=== PATIENT | female | born 1970 | race Caucasian/White ===

== ENCOUNTER 2016-10-08 19:34 | Emergency (ER) | payer MEDICAID ==
[~2016-10-08] VITALS: Ht 167.6 cm; Wt 123.2 kg
[2016-10-08] MEDS ORDERED: LISI40TA PO (20:21)
[2016-10-08 21:00] VITALS: BP 153/98
== END 2016-10-08 21:02 | disposition home or self-care (01) ==
LOC: ED 20:56
DX: H66.001 Acute suppurative otitis media without spontaneous rupture of ear drum, right ear (principal); E66.01 Morbid (severe) obesity due to excess calories; I10 Essential (primary) hypertension; E11.9 Type 2 diabetes mellitus without complications
CPT/HCPCS: 99283

== ENCOUNTER 2016-10-18 22:13 | Emergency (ER) | payer MEDICAID ==
[~2016-10-18] VITALS: Ht 167.6 cm; Wt 123.9 kg
[~2016-10-18 22:13] MED LIST: LISI40TA PO
[2016-10-18 22:14] VITALS: BP 169/122
== END 2016-10-19 00:11 | disposition home or self-care (01) ==
LOC: ED 23:47
DX: J02.9 Acute pharyngitis, unspecified (principal); K21.9 Gastro-esophageal reflux disease without esophagitis; I10 Essential (primary) hypertension; E78.00 Pure hypercholesterolemia, unspecified; E11.9 Type 2 diabetes mellitus without complications
CPT/HCPCS: 99281

== ENCOUNTER 2016-11-06 03:07 | Emergency (ER) | payer MEDICAID ==
[~2016-11-06] VITALS: Ht 167.6 cm; Wt 122.9 kg
[2016-11-06] MEDS ORDERED: SODIUM CHLORIDE FLUSH 10ML SYR IVF ONE (03:30)
[2016-11-06] MEDS ORDERED: SODIUM CHLORIDE 0.9% 1,000ML IVBOLUS ONE (03:30)
[2016-11-06 04:38] LABS: BLOOD UREA NITROGEN 14 mg/dL (7-18)
[2016-11-06] MEDS ORDERED: INSULIN REGULAR 100 UNITS/ML, 3ML VIAL SQ-INSULIN STA (04:53)
[2016-11-06] MEDS ORDERED: INSULIN REGULAR 100 UNITS/ML, 3ML VIAL ONE (05:04)
[2016-11-06 05:20] VITALS: BP 156/100
== END 2016-11-06 05:22 | disposition home or self-care (01) ==
LOC: ED 05:12
DX: E11.65 Type 2 diabetes mellitus with hyperglycemia (principal); I10 Essential (primary) hypertension; E78.00 Pure hypercholesterolemia, unspecified; Z88.1 Allergy status to other antibiotic agents
CPT/HCPCS: 36415; 80048; 82040; 82962; 84703; 85025; 96372

== ENCOUNTER 2016-11-12 22:08 | Emergency (ER) | payer MEDICAID ==
[~2016-11-12] VITALS: Ht 167.6 cm; Wt 122.9 kg
[2016-11-13 01:59] VITALS: BP 136/72
== END 2016-11-13 02:03 | disposition home or self-care (01) ==
LOC: ED 11-13 00:45
DX: F33.9 Major depressive disorder, recurrent, unspecified (principal); Z72.89 Other problems related to lifestyle; E11.9 Type 2 diabetes mellitus without complications; K21.9 Gastro-esophageal reflux disease without esophagitis; I10 Essential (primary) hypertension; E78.00 Pure hypercholesterolemia, unspecified
CPT/HCPCS: 99281

== ENCOUNTER 2017-01-17 18:22 | Inpatient (IN) | payer MEDICAID ==
[~2017-01-17] VITALS: Ht 167.6 cm; Wt 123.1 kg
[2017-01-17] MEDS ORDERED: SODIUM CHLORIDE 0.9% 1,000ML IVBOLUS ONE ×2 (19:30→21:30)
[2017-01-17] MEDS ORDERED: INSULIN REGULAR 100 UNITS/ML, 3ML VIAL SQ-INSULIN ONE (19:30)
[2017-01-17 19:41] LABS: HEMOGLOBIN 14.6 g/dL (11.7-16.4); WHITE BLOOD COUNT 10.9 x10^3/uL (3.4-10)
[2017-01-17] MEDS ORDERED: INSULIN SINGLE DOSE, ER SQ-INSULIN ONE (19:43)
[2017-01-17 19:51] LABS: BLOOD UREA NITROGEN 18 mg/dL (7-18)
[2017-01-17 19:52] LABS: ASPARTATE AMINO TRANSFERASE 20 U/L (15-37)
[2017-01-17] MEDS ORDERED: METF500T4 PO (20:28)
[2017-01-17] MEDS ORDERED: ATOR10TA9 PO (20:29)
[2017-01-17] MEDS ORDERED: INSU100C5 SQ-INSULIN (20:29)
[2017-01-17] MEDS ORDERED: POLYETHYLENE GLYCOL 17 GM PACKET PO PRN (21:30)
[2017-01-17] MEDS ORDERED: ONDANSETRON 2MG/ML, 2ML IVPush PRN (21:30)
[2017-01-17] MEDS ORDERED: BISACODYL 10 MG SUPP PR PRN (21:30)
[2017-01-17 22:39] VITALS: BP_SYST 145; BP_SYST 97; BP_DIAS 109; BP_DIAS 66
[2017-01-17] MEDS: SODIUM CHLORIDE 0.9% 1,000 ML IV SCH ×2 (22:53→23:48)
[2017-01-17] MEDS: NYSTATIN TOPICAL POWDER 15GM TP SCH (23:46)
[2017-01-17] MEDS: ATORVASTATIN 10 MG TABLET PO SCH (23:46)
[2017-01-17] MEDS: HEPARIN 5,000 UNITS/ML, 1ML SQ SCH (23:46)
[2017-01-17] MEDS: metFORMIN 500 MG TABLET PO SCH (23:46)
[2017-01-17] MEDS: INSULIN ASPART 100 UNITS/ML, PEN SQ-INSULIN SCH (23:47)
[2017-01-18 03:32] VITALS: BP 126/77
[2017-01-18 04:55] LABS: HEMATOCRIT 38.5 % (34.6-47.8); HEMOGLOBIN 13.5 g/dL (11.7-16.4); WHITE BLOOD COUNT 10.5 x10^3/uL (3.4-10)
[2017-01-18 05:06] LABS: ASPARTATE AMINO TRANSFERASE 13 U/L (15-37); BLOOD UREA NITROGEN 14 mg/dL (7-18)
[2017-01-18] MEDS: INSULIN ASPART 100 UNITS/ML, PEN SQ-INSULIN SCH ×4 (05:37→22:23)
[2017-01-18 08:01] VITALS: BP 145/99
[2017-01-18] MEDS: HEPARIN 5,000 UNITS/ML, 1ML SQ SCH ×2 (08:33→16:32)
[2017-01-18] MEDS: SENNA/DOCUSATE TABLET PO SCH (08:33)
[2017-01-18] MEDS: metFORMIN 500 MG TABLET PO SCH ×2 (08:34→22:20)
[2017-01-18] MEDS: NYSTATIN TOPICAL POWDER 15GM TP SCH ×3 (08:34→22:21)
[2017-01-18] MEDS: SODIUM CHLORIDE 0.9% 1,000 ML IV SCH ×2 (11:57→18:26)
[2017-01-18 14:05] VITALS: BP 149/93
[2017-01-18 19:38] VITALS: BP 142/86
[2017-01-18] MEDS: ATORVASTATIN 10 MG TABLET PO SCH (22:21)
[2017-01-19] VITALS (11 sets, daily range): BP systolic 145–185; BP diastolic 83–114
[2017-01-19] MEDS: SODIUM CHLORIDE 0.9% 1,000 ML IV SCH ×2 (01:54→08:19)
[2017-01-19] MEDS: HEPARIN 5,000 UNITS/ML, 1ML SQ SCH ×3 (01:54→16:36)
[2017-01-19] MEDS: INSULIN ASPART 100 UNITS/ML, PEN SQ-INSULIN SCH ×5 (02:00→21:05)
[2017-01-19 05:24] LABS: BLOOD UREA NITROGEN 9 mg/dL (7-18)
[2017-01-19 05:47] LABS: HEMOGLOBIN 13.2 g/dL (11.7-16.4); WHITE BLOOD COUNT 7.8 x10^3/uL (3.4-10)
[2017-01-19] MEDS: metFORMIN 500 MG TABLET PO SCH ×2 (08:08→21:05)
[2017-01-19] MEDS: SENNA/DOCUSATE TABLET PO SCH (08:09)
[2017-01-19] MEDS: NYSTATIN TOPICAL POWDER 15GM TP SCH ×3 (08:12→21:06)
[2017-01-19] MEDS: hydrALAzine 20 MG/ML, 1ML IV PRN ×2 (09:43→15:32)
[2017-01-19] MEDS: AMLODIPINE 5 MG TABLET PO SCH (09:44)
[2017-01-19] MEDS: ACETAMINOPHEN 325 MG TABLET PO PRN ×3 (09:52→20:44)
[2017-01-19] MEDS: POTASSIUM CHLORIDE 20 MEQ TAB.ER.PRT PO SCH ×2 (11:04→15:37)
[2017-01-19] MEDS: ATORVASTATIN 10 MG TABLET PO SCH (21:05)
[2017-01-20 01:36] VITALS: BP 128/80
[2017-01-20] MEDS: HEPARIN 5,000 UNITS/ML, 1ML SQ SCH ×2 (02:09→10:39)
[2017-01-20 05:47] LABS: BLOOD UREA NITROGEN 7 mg/dL (7-18)
[2017-01-20 07:46] VITALS: BP 129/82
[2017-01-20] MEDS: INSULIN ASPART 100 UNITS/ML, PEN SQ-INSULIN SCH ×2 (08:46→12:16)
[2017-01-20] MEDS: AMLODIPINE 5 MG TABLET PO SCH (08:46)
[2017-01-20] MEDS: metFORMIN 500 MG TABLET PO SCH (08:46)
[2017-01-20] MEDS: NYSTATIN TOPICAL POWDER 15GM TP SCH (08:47)
[2017-01-20] MEDS: SENNA/DOCUSATE TABLET PO SCH (08:47)
[2017-01-20] MEDS ORDERED: NYST60PO TP (09:29)
[2017-01-20] MEDS ORDERED: GLIP10TA13 PO (09:29)
[2017-01-20] MEDS ORDERED: AMLO5TAB2 PO (09:29)
[2017-01-20 12:27] VITALS: BP 174/95
[2017-01-20 13:17] VITALS: BP 146/9
== END 2017-01-20 14:36 | disposition home or self-care (01) | DRG 638 ==
LOC: ED 18:53 → EDIP 20:26 → 4NOR 22:25 → 4WST 01-19 18:23 → DCLOUNGE 01-20 14:00
PROVIDERS: ADMIT Internal Medicine; ATTEND Internal Medicine
DX: E11.65 Type 2 diabetes mellitus with hyperglycemia (principal); E44.0 Moderate protein-calorie malnutrition; Z68.41 Body mass index [BMI] 40.0-44.9, adult; B35.6 Tinea cruris; B37.9 Candidiasis, unspecified; E66.01 Morbid (severe) obesity due to excess calories; E78.00 Pure hypercholesterolemia, unspecified; E78.5 Hyperlipidemia, unspecified; E87.6 Hypokalemia; I10 Essential (primary) hypertension; K21.9 Gastro-esophageal reflux disease without esophagitis; L29.9 Pruritus, unspecified; Z59.0 Homelessness; Z79.4 Long term (current) use of insulin; Z83.3 Family history of diabetes mellitus; Z88.8 Allergy status to other drugs, medicaments and biological substances; Z91.19 Patient's noncompliance with other medical treatment and regimen
CPT/HCPCS: 36415; 80048; 80053; 82962; 83036; 83605; 83735; 85025; 96361; 96374; J1644; J1815; J2405; J0360; J7030